=== PATIENT | female | born 1985 | race Caucasian/White ===

== ENCOUNTER → 2016-07-14 | Outpatient (REF) | payer OTHER | LOC: M SFHCCAPE 09:03 | PROVIDERS: ATTEND Physician Assistant | DX: J02.9 Acute pharyngitis, unspecified (principal) ==

== ENCOUNTER → 2016-08-15 | Outpatient (CLI) | payer OTHER ==
[2016-08-15 13:47] LABS: BLOOD UREA NITROGEN 14 MG/DL (7-18); CREATININE FOR GFR 0.68 MG/DL (0.55-1.02); GLOMERULAR FILTRATION RATE > 60.0 (>60)
== END ==
LOC: M LAB 12:34
PROVIDERS: ATTEND Internal Medicine Gastroenterology
DX: K51.00 Ulcerative (chronic) pancolitis without complications (principal)

== ENCOUNTER → 2017-04-04 | Outpatient (REF) | payer OTHER | LOC: M SFHCWAGY 10:07 | PROVIDERS: ATTEND Nurse Practitioner Family | DX: Z12.4 Encounter for screening for malignant neoplasm of cervix (principal) ==

== ENCOUNTER → 2018-01-31 | Outpatient (REF) | payer OTHER ==
[2018-01-31 11:59] LABS: ANION GAP 6 MEQ/L (8-16); BLOOD UREA NITROGEN 11 MG/DL (7-18); CALCIUM LEVEL 8.8 MG/DL (8.5-10.1); CARBON DIOXIDE LEVEL 28 MEQ/L (21-32); CHLORIDE LEVEL 109 MEQ/L (98-107); CHOLESTEROL LEVEL 183 MG/DL (<200); CHOLESTEROL RISK RATIO 5.228 (<5); CREATININE FOR GFR 0.61 MG/DL (0.55-1.30); GLOMERULAR FILTRATION RATE > 60.0 (>60); GLUCOSE, FASTING 103 MG/DL (70-100); HDL CHOLESTEROL 35 MG/DL (>40); NON-HDL-C 148 MG/DL; POTASSIUM SERUM 4.4 MEQ/L (3.5-5.1); SODIUM LEVEL 143 MEQ/L (136-145); TRIGLYCERIDES LEVEL 140 MG/DL (<150)
== END ==
LOC: M SFHCPLAZ 07:49
DX: Z13.220 Encounter for screening for lipoid disorders (principal); I10 Essential (primary) hypertension
CPT/HCPCS: 80061

== ENCOUNTER → 2018-05-10 | Outpatient (REF) | payer OTHER ==
[2018-05-10 12:47] LABS: ALBUMIN 3.7 GM/DL (3.2-5.2); ALBUMIN/GLOBULIN RATIO 1.23 (1.00-1.93); ALKALINE PHOSPHATASE 90 U/L (45-117); ALT/SGPT 19 U/L (12-78); ANION GAP 5 MEQ/L (8-16); AST/SGOT 12 U/L (7-37); BILIRUBIN,TOTAL 0.4 MG/DL (0.2-1.0); BLOOD UREA NITROGEN 11 MG/DL (7-18); CALCIUM LEVEL 8.9 MG/DL (8.5-10.1); CARBON DIOXIDE LEVEL 30 MEQ/L (21-32); CHLORIDE LEVEL 106 MEQ/L (98-107); CREATININE FOR GFR 0.63 MG/DL (0.55-1.30); GLOMERULAR FILTRATION RATE > 60.0 (>60); GLUCOSE, FASTING 95 MG/DL (70-100); POTASSIUM SERUM 4.3 MEQ/L (3.5-5.1); SODIUM LEVEL 141 MEQ/L (136-145); TOTAL PROTEIN 6.7 GM/DL (6.4-8.2)
== END ==
LOC: M SFHCPLAZ 08:15
DX: I10 Essential (primary) hypertension (principal); Z68.41 Body mass index [BMI] 40.0-44.9, adult; Z28.21 Immunization not carried out because of patient refusal
CPT/HCPCS: 80053

== ENCOUNTER → 2018-08-09 | Outpatient (REF) | payer OTHER ==
[2018-08-09 12:36] LABS: BLOOD UREA NITROGEN 11 MG/DL (7-18); CALCIUM LEVEL 8.9 MG/DL (8.5-10.1); CARBON DIOXIDE LEVEL 29 MEQ/L (21-32); CHLORIDE LEVEL 104 MEQ/L (98-107); CREATININE FOR GFR 0.64 MG/DL (0.55-1.30); GLOMERULAR FILTRATION RATE > 60.0 (>60); GLUCOSE, FASTING 94 MG/DL (70-100); POTASSIUM SERUM 4.4 MEQ/L (3.5-5.1); SODIUM LEVEL 141 MEQ/L (136-145)
== END ==
LOC: M SFHCPLAZ 08:32
PROVIDERS: ATTEND Nurse Practitioner Family
DX: I10 Essential (primary) hypertension (principal); E78.5 Hyperlipidemia, unspecified; G89.4 Chronic pain syndrome

== ENCOUNTER → 2018-08-23 | Outpatient (REF) | payer OTHER ==
[2018-08-23 17:11] LABS: BASO # 0.1 10^3/uL (0.0-0.2); BASO % 0.4 % (0.0-1.0); EOS # 0.2 10^3/uL (0.0-0.50); EOS % 1.7 % (0.0-3.0); HEMATOCRIT 37.7 % (36.0-47.0); LYMPH # 3.2 10^3/uL (1.5-4.5); LYMPH % 26.7 % (24.0-44.0); MEAN CORPUSCULAR HEMOGLOBIN 28.6 pg (27.0-33.0); MEAN CORPUSCULAR HGB CONC 31.8 g/dl (32.0-36.5); MEAN CORPUSCULAR VOLUME 89.8 fl (80.0-96.0); MONO # 0.6 10^3/uL (0.0-0.8); MONO % 5.1 % (0.0-5.0); NEUTROPHILS # 7.9 10^3/uL (1.8-7.7); NEUTROPHILS % 65.8 % (36.0-66.0); PLATELET COUNT, AUTOMATED 451 10^3/uL (150-450)
[2018-08-23 17:27] LABS: ALBUMIN 3.7 GM/DL (3.2-5.2); ALT/SGPT 19 U/L (12-78); BILIRUBIN,TOTAL 0.3 MG/DL (0.2-1.0); BLOOD UREA NITROGEN 10 MG/DL (7-18); C REACTIVE PROTEIN QUANTITATIV 1.06 MG/DL (0.00-0.30); CALCIUM LEVEL 8.7 MG/DL (8.5-10.1); CARBON DIOXIDE LEVEL 24 MEQ/L (21-32); CHLORIDE LEVEL 109 MEQ/L (98-107); CREATININE FOR GFR 0.64 MG/DL (0.55-1.30); GLOMERULAR FILTRATION RATE > 60.0 (>60); GLUCOSE, FASTING 106 MG/DL (70-100); POTASSIUM SERUM 4.5 MEQ/L (3.5-5.1); SODIUM LEVEL 142 MEQ/L (136-145); TOTAL PROTEIN 6.8 GM/DL (6.4-8.2)
== END ==
LOC: M LABDRWCV 16:38
PROVIDERS: ATTEND Internal Medicine Gastroenterology
DX: K51.50 Left sided colitis without complications (principal)

== ENCOUNTER → 2019-03-28 | Outpatient (REF) | payer OTHER ==
[2019-03-28 10:58] LABS: ALBUMIN 3.6 GM/DL (3.2-5.2); ALT/SGPT 31 U/L (12-78); BILIRUBIN,TOTAL 0.4 MG/DL (0.2-1.0); BLOOD UREA NITROGEN 12 MG/DL (7-18); CALCIUM LEVEL 8.7 MG/DL (8.5-10.1); CARBON DIOXIDE LEVEL 32 MEQ/L (21-32); CHLORIDE LEVEL 104 MEQ/L (98-107); CHOLESTEROL LEVEL 210 MG/DL (<200); CHOLESTEROL RISK RATIO 4.772 (<5); CREATININE FOR GFR 0.63 MG/DL (0.55-1.30); GLOMERULAR FILTRATION RATE > 60.0 (>60); GLUCOSE, FASTING 96 MG/DL (70-100); HDL CHOLESTEROL 44 MG/DL (>40); LDL CHOLESTEROL 145 MG/DL (<100); NON-HDL-C 166 MG/DL; POTASSIUM SERUM 4.6 MEQ/L (3.5-5.1); SODIUM LEVEL 141 MEQ/L (136-145); TOTAL PROTEIN 6.9 GM/DL (6.4-8.2); TRIGLYCERIDES LEVEL 107 MG/DL (<150)
[2019-03-28 11:38] LABS: CREATININE, URINE 58.5 MG/DL; MALB URINE SIEMENS < 5.0 MG/L; MAU/CREAT RATIO 8.5 MCG/MG (0.0-30.0)
== END ==
LOC: M SFHCPLAZ 08:44
PROVIDERS: ATTEND Family Medicine
DX: I10 Essential (primary) hypertension (principal); E78.5 Hyperlipidemia, unspecified

== ENCOUNTER 2019-07-30 07:53 | Day surgery (SDC) | payer OTHER ==
[~2019-07-30] VITALS: Ht 154.9 cm; Wt 93.9 kg
[~2019-07-30 07:53] MED LIST: DEPO150I IM; DICY20TA11 PO; DULO1CAP6 PO; GABA-843 PO; LIDOCAINE 1% MDV 20ML VIAL SQ PRN; LISI10TA4 PO; LORA-674 PO; LR 1,000 ML IV ONE; MESA400C2 PO; METH750T2 PO; OMEP-221 PO; TRAZ-252 PO; ceFAZolin SOD 1 GM in D5W MINI-BAG PLUS 50 ML IV ONE
[2019-07-30] MEDS ORDERED: MIDAZOLAM INJ 2 MG/2 ML VIAL (J2250) As Ordered ONE ×2 (08:23→10:18)
[2019-07-30] MEDS ORDERED: dexameTHASONE 4 MG/ML 1ML VIAL (J1100) As Ordered ONE (08:23)
[2019-07-30] MEDS ORDERED: fentaNYL 250 MCG/5 ML INJECTION (J3010) As Ordered ONE (08:23)
[2019-07-30] MEDS ORDERED: LACRILUBE (AKWA TEARS) OPHTH OINT 3.5 GM As Ordered ONE (08:24)
[2019-07-30] MEDS ORDERED: LIDOCAINE 2% INJ 100 MG/5 ML SDV (FOR ANES.) As Ordered ONE (08:24)
[2019-07-30] MEDS ORDERED: propofoL 200 MG/20 ML VIAL As Ordered ONE ×2 (08:24→09:58)
[2019-07-30] MEDS ORDERED: ROCURONIUM BROMIDE 50 MG/5 ML VIAL As Ordered ONE ×3 (08:24→10:19)
[2019-07-30] MEDS ORDERED: ONDANSETRON 4MG/2ML VIAL (J2405) As Ordered ONE ×2 (08:24→11:55)
[2019-07-30] MEDS ORDERED: KETOROLAC 60 MG/2 ML VIAL (J1885) As Ordered ONE (08:24)
[2019-07-30] MEDS ORDERED: BUPIVACAINE LIPOSOME/PF 1.3% 20ML VIAL (13.3MG/ML)(EXPAREL)(C9290 PER1MG) As Ordered ONE (09:16)
[2019-07-30] MEDS ORDERED: BUPIVACAINE/EPIN 0.25% 30 ML VIAL As Ordered ONE (09:16)
[2019-07-30] MEDS ORDERED: BUPIVACAINE HCL 0.25% 10 ML VIAL As Ordered ONE (09:16)
[2019-07-30] MEDS ORDERED: HYDROmorphone HCL 2 MG/ML 1ML VIAL (J1170) As Ordered ONE (09:57)
[2019-07-30] MEDS ORDERED: ACETAMINOPHEN 1000MG 100ML IV BTL (OFIRMEV) (J0131 PER 10MG) As Ordered ONE (10:01)
[2019-07-30] MEDS ORDERED: SUGAMMADEX SODIUM 500 MG/5 ML VIAL (BRIDION) As Ordered ONE (10:07)
[2019-07-30] MEDS ORDERED: METOPROLOL 5 MG/5 ML VIAL As Ordered ONE (11:19)
--- NOTE | 2019-07-30 11:28 | RO ---
DATE OF PROCEDURE: 07/30/2019 PREOPERATIVE DIAGNOSIS: Umbilical hernia and incisional hernia. POSTOPERATIVE DIAGNOSIS: Umbilical hernia and incisional hernia. PROCEDURE: Robotic-assisted laparoscopic umbilical and incisional hernia repair with mesh. SURGEON: Dr. Ran Rosas. WIRE WEAVER: Janine Melara (provided instrument exchange, trocar placement and the mesh placement) ANESTHESIA: General endotracheal anesthesia. ESTIMATED BLOOD LOSS: Minimal. FLUIDS: Crystalloid. DESCRIPTION OF PROCEDURE: The patient was brought to the operating room and was given general anesthesia. After adequate anesthesia and preoperative antibiotics were given the patient was prepped and draped in the usual sterile fashion. Next a left upper quadrant 8 mm incision was made. Blunt dissection down to fascia. Veress needle placed into the abdominal cavity and insufflated to 15 mm pressure. Then a dilating 8 mm trocar was placed at this time. Under direct visualization an epigastric and left lateral trocars were placed. The patient had omentum incarcerated within this hernia. This incisional hernia was below the umbilicus and was containing omentum but no bowel. This was taken out of this hernia site using electrocautery and eventually once the hernia contents were reduced the insufflation pressures were taken down and 0 Stratafix was used to approximate the 5 cm fascial defect at the infraumbilical area. This came together longitudinally and then starting superior to the umbilicus, the fascia was brought together to close the umbilical site as well. Once these two were closed a 10 x 15, Parietex mesh was placed in the peritoneal cavity and sutured circumferentially with three #3-0 V-Loc suture. Exparel and local was infiltrated circumferentially and laterally in the abdominal wall. All trocars were removed under direct visualization. #4-0 Vicryl was used close the skin incisions. Steri-Strips and a dry sterile dressing was applied. The patient was awakened, extubated, brought to recovery room awake, alert, hemodynamically stable. Sponge and needle counts correct times two
[2019-07-30] MEDS ORDERED: oxyCODONE 5MG TAB As Ordered ONE (11:56)
[2019-07-30] MEDS: ONDANSETRON 4MG/2ML VIAL (J2405) IV PRN (12:04)
[2019-07-30] MEDS ORDERED: oxyCODONE 5MG TAB PO PRN (12:15)
[2019-07-30] MEDS ORDERED: NORCO, ANEXSIA 5/325MG TABLET (HYDROcodone/ACETAMINOPHEN) PO PRN (12:15)
[2019-07-30] MEDS ORDERED: HYDROMORPHONE HCL 0.5 MG/ 0.5 ML SYRINGE (J1170 PER 1) IV PRN (12:15)
[2019-07-30] MEDS ORDERED: ONDANSETRON 4MG/2ML VIAL (J2405) IV PRN (12:15)
[2019-07-30] MEDS ORDERED: fentaNYL 100 MCG/2 ML INJECTION (J3010) IV PRN (12:15)
[2019-07-30] MEDS ORDERED: LR 1,000 ML IV SCH ×2 (12:15)
[2019-07-30 14:35] VITALS: BP 135/86
== END 2019-07-30 14:35 | disposition home or self-care (01) ==
LOC: M SDC 07:53
PROVIDERS: ATTEND Surgery
DX: K42.9 Umbilical hernia without obstruction or gangrene (principal); K43.2 Incisional hernia without obstruction or gangrene; I10 Essential (primary) hypertension; K21.9 Gastro-esophageal reflux disease without esophagitis; M79.7 Fibromyalgia; F41.9 Anxiety disorder, unspecified; F32.9 Major depressive disorder, single episode, unspecified; Z79.899 Other long term (current) drug therapy; Z88.1 Allergy status to other antibiotic agents; Z91.040 Latex allergy status
CPT/HCPCS: 49652; 81025; C1781; C9290; J0131; J0690; J1100; J1170; J1885; J2250; J2405; J3010

== ENCOUNTER → 2019-10-11 | Outpatient (REF) | payer OTHER ==
[~2019-10-11] MED LIST changes: -LIDOCAINE 1% MDV 20ML VIAL SQ PRN; -LR 1,000 ML IV ONE; -ceFAZolin SOD 1 GM in D5W MINI-BAG PLUS 50 ML IV ONE
[2019-10-11 10:33] LABS: BLOOD UREA NITROGEN 13 MG/DL (7-18); CALCIUM LEVEL 9.2 MG/DL (8.5-10.1); CARBON DIOXIDE LEVEL 32 MEQ/L (21-32); CHLORIDE LEVEL 104 MEQ/L (98-107); CREATININE FOR GFR 0.57 MG/DL (0.55-1.30); GLOMERULAR FILTRATION RATE > 60.0 (>60); GLUCOSE, FASTING 97 MG/DL (70-100); POTASSIUM SERUM 4.7 MEQ/L (3.5-5.1); SODIUM LEVEL 139 MEQ/L (136-145)
== END ==
LOC: M PLALAB 08:11
PROVIDERS: ATTEND Nurse Practitioner Family
DX: I10 Essential (primary) hypertension (principal)

== ENCOUNTER → 2020-05-26 | Outpatient (REF) | payer OTHER | LOC: M SFHCPLAZ 13:13 | PROVIDERS: ATTEND Family Medicine | DX: D22.9 Melanocytic nevi, unspecified (principal) ==

== ENCOUNTER 2020-06-11 21:59 | Inpatient (IN) | payer OTHER ==
[~2020-06-11] VITALS: Ht 154.9 cm; Wt 88.9 kg
[2020-06-11 23:55] VITALS: BP 119/70
[2020-06-12] MEDS ORDERED: LISI-542 PO (00:17)
[2020-06-12] MEDS ORDERED: MULTTAB86 PO (00:28)
[2020-06-12] MEDS ORDERED: ACETAMINOPHEN TAB 650MG DOSE (2X325MG) PO PRN (00:30)
[2020-06-12] MEDS ORDERED: MOM 30ML SUSPENSION UDC PO PRN (00:30)
[2020-06-12] MEDS ORDERED: MAALOX 30 ML SUSP *UDC PO PRN (00:30)
--- NOTE | 2020-06-12 00:35 | HPEPDOC ---
[facility] Medical History & Physical Date of Admission Jun 12, 2020 Date of Service: Jun 12, 2020 History and Physical TIME OF SERVICE: 1:30 AM CHIEF COMPLAINT: Pain and swelling HISTORY OF PRESENT ILLNESS: This 35-year-old female presented to [facility] with complaints of with redness, pain, swelling, and yellow-green discharge draining from the upper pubic area. She initially had pimples in the area which she had tried to manage on her own with manual pressure, but more pimples continue to appear in the increased in size. She was evaluated by Dr. Schofield at [facility] who noted that her WBC count was 26. Imaging studies also revealed an abscess that was 4.5 cm in size within opened area that was draining pus, therefore transfer was requested for incision and drainage. At the time of my evaluation, the patient also added that the day prior after trying to manually remove the discharge, she felt fairly overwhelmed and had a syncopal episode. She denied having fevers, chills, nausea, vomiting or diarrhea. REVIEW OF SYSTEMS: 12 point review of systems negative except as listed in HPI PAST MEDICAL/ SURGICAL HISTORY: Hypertension Fibromyalgia Irritable bowel syndrome Ulcerative colitis ? Hernia repair Depression Anxiety Vitamin D deficiency Hiatial hernia repair SOCIAL HISTORY: She is a former smoker She uses medical marijuana FAMILY HISTORY: Hypertension ALLERGIES: Please see below. HOME MEDICATIONS: Please see below. PHYSICAL EXAMINATION: VITAL SIGNS: Please see below. GEN: well-nourished / well developed/ anxious INTEGUMENT: Skin at the mid and left suprapubic area is red, warm, raised and tender on palpation. There is some serosanguineous discharge . HEENT: lips acyanotic /mucus membranes moist and pink / CVS: RRR/NMRG/ no JVP / radial pulses intact LUNGS: able to speak full sentences without stopping to take a breath / no coughing / lungs are clear to auscultation bilaterally on room air ABDOMEN: Contour (obese) MSK/EXTREMITIES: NCAT / range of motion intact in all 4 extremities NEURO: CN 2-12 are grossly intact / speech is not dysarthric PSYCH: alert and oriented to person place and time/ able to understand and follow all commands LABORATORY DATA: See below. IMAGING: see HPI MICROBIOLOGY: Please see below. ASSESSMENT: Ms. Martino is a 35-year-old with a history of obesity, hypertension, fibromyalgia, ulcers, colitis, along with irritable bowel syndrome who presented to an outside hospital with complaints of suprapubic redness, pain and swelling along with discharge and was diagnosed with pubic symphysis abscess . PLAN: 1. Pubic symphysis abscess. Plan: Admit to medical floor/start vancomycin for MRSA coverage and ceftriaxone for MSSA coverage / morphine for pain/ nothing by mouth pending possible incision and drainage by Dr. Carlson 2. Chronic hypertension Plan: Lisinopril 3. Irritable bowel syndrome. / UC? The patient follows up with Dr. Street Plan: Dicyclomine 4. Depression Plan: Duloxetine 5. Morbid obesity BMI 37.2, complicates care. Plan: Follow-up A1c / the patient can follow-up with her primary care provider to discuss dietary and exercise recommendations DVT PROPHYLAXIS: SCDs DISPOSITION: home after more than 2 midnight's stay Vital Signs Vital Signs Date Time Temp Pulse Resp B/P (MAP) Pulse Ox O2 Delivery O2 Flow Rate FiO2 06/11/20 23:55 99.1 107 20 119/70 (86) 97 Room Air Home Medications Scheduled Duloxetine Hcl (Duloxetine HCl) 60 Mg Capsule.dr, 60 MG PO DAILY Gabapentin (Gabapentin) 300 Mg Capsule, 300 MG PO TID Lisinopril (Lisinopril) 5 Mg Tablet, 5 MG PO DAILY Loratadine (Loratadine) 10 Mg Tablet, 10 MG PO DAILY Medroxyprogesterone Acetate (Depo-Provera) 150 Mg/1 Ml Vial, 150 MG IM [id number] due this [id number] Methocarbamol (Methocarbamol) 750 Mg Tablet, 750 MG PO TID Multivitamin (Multi-Vitamin Daily) 1 Each Tablet, 1 TAB PO DAILY Omeprazole (Omeprazole) 40 Mg Capsule.dr, 40 MG PO BID Scheduled PRN Dicyclomine HCl (Dicyclomine HCl) 20 Mg Tablet, 20 MG PO Q6-8HP PRN for DIARRHEA Allergies Coded Allergies: doxycycline (Unverified Allergy, Intermediate, hives, 07/22/19) latex (Unverified Allergy, Intermediate, hives, 07/22/19) A-FIB/CHADSVASC A-FIB History Current/History of A-Fib/PAF?: No Current PO Anticoag Therapy: No ALISE HARDIN MD Jun 12, 2020 00:35
[2020-06-12 01:47] LABS: HEMATOCRIT 33.3 % (36.0-47.0); HEMOGLOBIN 10.4 g/dl (12.0-15.5); MEAN CORPUSCULAR HEMOGLOBIN 28.3 pg (27.0-33.0); MEAN CORPUSCULAR HGB CONC 31.2 g/dl (32.0-36.5); MEAN CORPUSCULAR VOLUME 90.7 fl (80.0-96.0); PLATELET COUNT, AUTOMATED 317 10^3/uL (150-450); RED BLOOD COUNT 3.67 10^6/uL (4.00-5.40)
[2020-06-12] MEDS: MORPHINE 4 MG/ML 1ML VIAL/SYRINGE (J2270) IV PRN ×3 (01:58→08:17)
[2020-06-12] MEDS: NS 1,000 ML IV SCH ×2 (01:58→08:15)
[2020-06-12 02:05] LABS: HEMOGLOBIN A1c 5.8 %
[2020-06-12 02:13] LABS: BLOOD UREA NITROGEN 10 MG/DL (7-18); CALCIUM LEVEL 8.7 MG/DL (8.5-10.1); CARBON DIOXIDE LEVEL 26 MEQ/L (21-32); CHLORIDE LEVEL 109 MEQ/L (98-107); CREATININE FOR GFR 0.72 MG/DL (0.55-1.30); GLOMERULAR FILTRATION RATE > 60.0 (>60); GLUCOSE, FASTING 103 MG/DL (70-100); POTASSIUM SERUM 3.5 MEQ/L (3.5-5.1); SODIUM LEVEL 140 MEQ/L (136-145)
[2020-06-12] MEDS ORDERED: DICYCLOMINE 10 MG CAP PO PRN (03:00)
[2020-06-12] MEDS: VANCOMYCIN HCL 1,000 MG, VIAL MATE ADAPTER 1 EACH in D5W 250 ML IV SCH ×3 (04:08→21:36)
[2020-06-12 05:46] VITALS: BP 114/69
[2020-06-12] MEDS: GABAPENTIN 300 MG CAP PO SCH ×3 (08:16→21:36)
[2020-06-12] MEDS: methocarbamoL 750 MG TAB PO SCH ×3 (08:16→21:36)
[2020-06-12] MEDS: LORATADINE 10 MG TAB PO SCH (08:16)
[2020-06-12] MEDS: DULoxetine 30 MG CAP (CYMBALTA) PO SCH (08:16)
[2020-06-12] MEDS: OMEPRAZOLE 20 MG CAP PO SCH (08:16)
[2020-06-12] MEDS: lisinopriL 5 MG TAB PO SCH (08:16)
[2020-06-12] MEDS ORDERED: LIDOCAINE 1% MDV 20ML VIAL IM ONE (08:45)
[2020-06-12] MEDS: NORCO, ANEXSIA 5/325MG TABLET (HYDROcodone/ACETAMINOPHEN) PO PRN ×3 (08:55→21:36)
--- NOTE | 2020-06-12 13:20 | RO ---
OPERATIVE NOTE DATE OF OPERATION: 06/11/2020 PREOPERATIVE DIAGNOSIS: Right groin abscess. POSTOPERATIVE DIAGNOSIS: Right groin abscess. PROCEDURE: Bedside incision and drainage of right groin abscess. SURGEON: Dr. Carlson ASSIST: None. ANESTHESIA: 5 mL of 1% Lidocaine plain. COMPLICATIONS: None. EBL: 5 mL. INDICATION FOR PROCEDURE: The patient is a 35-year-old female with a large right groin abscess with significant leukocytosis secondary to that. Recommendation was to proceed with bedside incision and drainage. Risks and benefits of the procedure not limited to but including bleeding, infection, damage to surrounding structures, and need for further surgery were discussed in detail with the patient, informed consent was obtained and procedure was planned. PROCEDURE: The patient's right groin was sterilely prepped and draped with chlorhexidine. Next, a timeout was done with the bedside nurse. Next, 5 mL of 1% Lidocaine plain was injected into the skin and the subcutaneous tissues overlying the most fluctuant portion of the abscess where there is already active drainage. Once that was completed, a 15 blade scalpel was used to make a 1 cm incision right into the middle of it. Upon doing so, a large amount of purulent fluid was expelled. I was able to drain out as much as I could manually. The wound was gently probed with a cotton tipped applicator. Once the majority of the drainage was out, the wound was covered with just dry gauze and that ended the procedure.
--- NOTE | 2020-06-12 13:50 | IPNPDOC ---
Date Seen The patient was seen on 06/12/20. Progress Note SUBJECTIVE: Patient is a -year-old [RACE] [GENDER] with OBJECTIVE HISTORY OF PRESENT ILLNESS: This 35-year-old female presented to [facility] with complaints of with redness, pain, swelling, and yellow-green discharge draining from the upper pubic area. She initially had pimples in the area which she had tried to manage on her own with manual pressure, but more pimples continue to appear in the increased in size. She was evaluated by Dr. Schofield at [facility] who noted that her WBC count was 26. Imaging studies also revealed an abscess that was 4.5 cm in size within opened area that was draining pus, therefore transfer was requested for incision and drainage. At the time of my evaluation, the patient also added that the day prior after trying to manually remove the discharge, she felt fairly overwhelmed and had a syncopal episode. She denied having fevers, chills, nausea, vomiting or diarrhea. REVIEW OF SYSTEMS: 12 point review of systems negative except as listed in HPI PAST MEDICAL/ SURGICAL HISTORY: Hypertension Fibromyalgia Irritable bowel syndrome Ulcerative colitis ? Hernia repair Depression Anxiety Vitamin D deficiency Hiatial hernia repair SOCIAL HISTORY: She is a former smoker She uses medical marijuana FAMILY HISTORY: Hypertension ALLERGIES: Please see below. HOME MEDICATIONS: Please see below. PHYSICAL EXAMINATION: VITAL SIGNS: Please see below. GEN: well-nourished / well developed/ anxious INTEGUMENT: Skin at the mid and left suprapubic area is red, warm, raised and tender on palpation. There is some serosanguineous discharge . HEENT: lips acyanotic /mucus membranes moist and pink / CVS: RRR/NMRG/ no JVP / radial pulses intact LUNGS: able to speak full sentences without stopping to take a breath / no coughing / lungs are clear to auscultation bilaterally on room air ABDOMEN: Contour (obese) MSK/EXTREMITIES: NCAT / range of motion intact in all 4 extremities NEURO: CN 2-12 are grossly intact / speech is not dysarthric PSYCH: alert and oriented to person place and time/ able to understand and follow all commands LABORATORY DATA: See below. IMAGING: see HPI MICROBIOLOGY: Please see below. ASSESSMENT: Ms. Martino is a 35-year-old with a history of obesity, hypertension, fibromyalgia, ulcers, colitis, along with irritable bowel syndrome who presented to an outside hospital with complaints of suprapubic redness, pain and swelling along with discharge and was diagnosed with pubic symphysis abscess . PLAN: 1. Pubic symphysis abscess -S/p I&D bedside -Stopping Ceftriaxone, c/w vancomycin for MRSA coverage. -pain control -F/u cultures -Surgery following 2. Chronic hypertension -Stable -C/w Lisinopril 3. Irritable bowel syndrome. / UC? -follows up with Dr. Street -Dicyclomine 4. Depression -Duloxetine 5. Morbid obesity -BMI 37.2, complicates care. -the patient can follow-up with her primary care provider to discuss dietary and exercise recommendations 6. DVT PROPHYLAXIS -Enoxaparin DISPOSITION: F/u cultures, Plan is discharge home when medically improved. VS, I&O, 24H, Fishbone Vital Signs/I&O Vital Signs Date Time Temp Pulse Resp B/P (MAP) Pulse Ox O2 Delivery O2 Flow Rate FiO2 06/12/20 09:25 16 06/12/20 08:16 114/69 06/12/20 05:46 97.6 103 97 Room Air I&O- Last 24 Hours up to 6 AM 06/12/20 06:00 Intake Total 692 ml Output Total 0 ml Balance 692 ml Laboratory Data 24H LABS Laboratory Tests 2 06/12/20 01:34: Nucleated Red Blood Cells % (auto) 0.0, Anion Gap 5L, Glomerular Filtration Rate > 60.0, Estimated Mean Plasma Glucose 120H, Hemoglobin A1c 5.8, Lactic Acid Level 1.5, Calcium Level 8.7 CBC/BMP Laboratory Tests 06/12/20 01:34 Microbiology Microbiology 06/12/20 Blood Culture, Received Pending Current Medications Current Medications Medications (Trade) Dose Ordered Sig/Tess Route PRN Reason Start Time Stop Time Status Last Admin Dose Admin Acetaminophen (Tylenol Tab) 650 mg Q4H PRN PO MILD/MODERATE PAIN / FEVER 06/12/20 00:30 Acetaminophen/ Hydrocodone Bitart ([place], Anexsia 5/325) 2 tab Q6HP PRN PO SEVERE PAIN (PS 8-10) 06/12/20 08:45 06/12/20 08:55 Al Hydrox/Mg Hydrox/Simethicone (Mylanta) 30 ml DAILY PRN PO DYSPEPSIA 06/12/20 00:30 Ceftriaxone Sodium 2 gm/ Dextrose 50 ml @ 100 mls/hr Q24H IV 06/12/20 18:00 06/12/20 11:52 DC Dicyclomine HCl (Bentyl) 20 mg Q8HP PRN PO diarrhea 06/12/20 03:00 Duloxetine HCl (Cymbalta) 60 mg DAILY PO 06/12/20 09:00 06/12/20 08:16 Gabapentin (Neurontin) 300 mg TID PO 06/12/20 09:00 06/12/20 08:16 Home Med (Med Rec Complete!) ASDIRECTED XX 06/12/20 00:45 06/12/20 00:52 DC Lisinopril (Prinivil) 5 mg DAILY PO 06/12/20 09:00 06/12/20 08:16 Loratadine (Claritin) 10 mg DAILY PO 06/12/20 09:00 06/12/20 08:16 Magnesium Hydroxide (Milk Of Magnesia) 30 ml DAILY PRN PO CONSTIPATION 06/12/20 00:30 Methocarbamol (Robaxin) 750 mg TID PO 06/12/20 09:00 06/12/20 08:16 Morphine Sulfate (Morphine Sulfate Inj) 2 mg Q3HP PRN IV SEVERE PAIN (PS 8-10) 06/12/20 01:45 06/12/20 08:17 Omeprazole (PriLOSEC) 40 mg DAILY PO 06/12/20 09:00 06/12/20 08:16 Sodium Chloride 1,000 ml @ 120 mls/hr Q8H20M IV 06/12/20 00:29 06/12/20 11:52 DC 06/12/20 08:15 Vancomycin HCl 1000 mg/IV Miscellaneous Supplies 1 each/ Dextrose 270 ml @ 270 mls/hr Q8H IV 06/12/20 04:00 06/12/20 12:14 Allergies Coded Allergies: doxycycline (Unverified Allergy, Intermediate, hives, 07/22/19) latex (Unverified Allergy, Intermediate, hives, 07/22/19) Jessica Castellon MD Jun 12, 2020 13:50
[2020-06-12] MEDS: ENOXAPARIN 40MG/0.4ML SYRINGE (J1650 PER 10MG) SC SCH (14:00)
[2020-06-12] MEDS ORDERED: cefTRIAXone SOD 2 GM in D5W MINI-BAG PLUS 50 ML IV SCH (18:00)
[2020-06-12] MEDS ORDERED: VANCOMYCIN HCL 1,000 MG, VIAL MATE ADAPTER 1 EACH in D5W 250 ML IV ONE (21:00)
[2020-06-12 22:00] VITALS: BP 103/55
[2020-06-13] MEDS: VANCOMYCIN HCL 1,000 MG, VIAL MATE ADAPTER 1 EACH in D5W 250 ML IV SCH ×3 (03:45→20:11)
[2020-06-13] MEDS: NORCO, ANEXSIA 5/325MG TABLET (HYDROcodone/ACETAMINOPHEN) PO PRN ×2 (03:46→12:33)
[2020-06-13 06:00] VITALS: BP 114/63
[2020-06-13 07:39] LABS: HEMATOCRIT 31.8 % (36.0-47.0); HEMOGLOBIN 10.1 g/dl (12.0-15.5); MEAN CORPUSCULAR HEMOGLOBIN 28.4 pg (27.0-33.0); MEAN CORPUSCULAR HGB CONC 31.8 g/dl (32.0-36.5); MEAN CORPUSCULAR VOLUME 89.3 fl (80.0-96.0); PLATELET COUNT, AUTOMATED 351 10^3/uL (150-450); RED BLOOD COUNT 3.56 10^6/uL (4.00-5.40)
[2020-06-13 08:02] LABS: BLOOD UREA NITROGEN 5 MG/DL (7-18); CREATININE FOR GFR 0.57 MG/DL (0.55-1.30); GLOMERULAR FILTRATION RATE > 60.0 (>60); GLUCOSE, FASTING 97 MG/DL (70-100)
[2020-06-13 08:03] LABS: CALCIUM LEVEL 8.5 MG/DL (8.5-10.1); CARBON DIOXIDE LEVEL 29 MEQ/L (21-32); CHLORIDE LEVEL 107 MEQ/L (98-107); POTASSIUM SERUM 3.7 MEQ/L (3.5-5.1); SODIUM LEVEL 142 MEQ/L (136-145)
[2020-06-13] MEDS: LORATADINE 10 MG TAB PO SCH (08:40)
[2020-06-13] MEDS: lisinopriL 5 MG TAB PO SCH (08:41)
[2020-06-13] MEDS: OMEPRAZOLE 20 MG CAP PO SCH (08:41)
[2020-06-13] MEDS: GABAPENTIN 300 MG CAP PO SCH ×3 (08:41→20:11)
[2020-06-13] MEDS: methocarbamoL 750 MG TAB PO SCH ×3 (08:41→20:11)
[2020-06-13] MEDS: DULoxetine 30 MG CAP (CYMBALTA) PO SCH (08:41)
[2020-06-13] MEDS: ENOXAPARIN 40MG/0.4ML SYRINGE (J1650 PER 10MG) SC SCH (08:42)
[2020-06-13 14:00] VITALS: BP 130/81
--- NOTE | 2020-06-13 14:29 | IPNPDOC ---
Date Seen The patient was seen on 06/13/20. Progress Note SUBJECTIVE: Area of cellulitis appears extensive still, not worsened. No cultures send from I&D that I can see, will discuss with staff. BCx NG. Denies fevers, chills, n/v/d. OBJECTIVE: PHYSICAL EXAMINATION: VITAL SIGNS: Please see below. GEN: well-nourished / well developed INTEGUMENT: Skin at the right suprapubic extending around the right hip, upper thigh area is red, warm, raised and tender on palpation. Indurated and tender to touch. 2 small incisions where I&D was performed, fresh bandage covering. No serosanguineous discharge . HEENT: lips acyanotic /mucus membranes moist and pink / CVS: RRR/NMRG/ no JVP / radial pulses intact LUNGS: able to speak full sentences without stopping to take a breath / no coughing / lungs are clear to auscultation bilaterally on room air ABDOMEN: obese, Contour (obese) MSK/EXTREMITIES: NCAT / range of motion intact in all 4 extremities NEURO: CN 2-12 are grossly intact / speech is not dysarthric PSYCH: alert and oriented to person place and time/ able to understand and follow all commands LABORATORY DATA: See below. IMAGING: see HPI MICROBIOLOGY: BCx x 2 sets: NG at 24 hours. ASSESSMENT: Ms. Martino is a 35-year-old with a history of obesity, hypertension, fibromyalgia, ulcers, colitis, along with irritable bowel syndrome admitted for further treatment of pubic symphysis abscess with right groin, hip and upper thigh cellulitis. PLAN: 1. Pubic symphysis abscess with right groin, hip and upper thigh cellulitis -S/p I&D by surgery at bedside on 06/12/20 -WBC slightly improved to 23K, afebrile, LA wnl. -No cultures appear to be sent from I&D unfortunately, BCx NG at 24 hours. -Stopped Ceftriaxone 06/12/20 -C/w vancomycin for MRSA coverage. -Pain control, daily labs. 2. Chronic hypertension -Stable -C/w Lisinopril 3. Irritable bowel syndrome / UC? -follows up with Dr. Street -Dicyclomine 4. Depression -Duloxetine 5. Morbid obesity -BMI 37.2, complicates care. -the patient can follow-up with her primary care provider to discuss dietary and exercise recommendations 6. DVT PROPHYLAXIS -Enoxaparin DISPOSITION: Plan is discharge home when medically improved. VS, I&O, 24H, Fishbone Vital Signs/I&O Vital Signs Date Time Temp Pulse Resp B/P (MAP) Pulse Ox O2 Delivery O2 Flow Rate FiO2 06/13/20 14:00 98.0 94 18 130/81 (97) 97 Room Air I&O- Last 24 Hours up to 6 AM 06/13/20 06:00 Intake Total 2830 ml Output Total 0 ml Balance 2830 ml Laboratory Data 24H LABS Laboratory Tests 2 06/12/20 18:46: Vancomycin Level Trough 7.9L 06/13/20 07:21: Nucleated Red Blood Cells % (auto) 0.0, Anion Gap 6L, Glomerular Filtration Rate > 60.0, Calcium Level 8.5 CBC/BMP Laboratory Tests 06/13/20 07:21 Microbiology Microbiology 06/12/20 Blood Culture - Preliminary, Resulted No growth after 24 hours . All specim... 06/12/20 Blood Culture - Preliminary, Resulted No growth after 24 hours . All specim... Current Medications Current Medications Medications (Trade) Dose Ordered Sig/Tess Route PRN Reason Start Time Stop Time Status Last Admin Dose Admin Acetaminophen (Tylenol Tab) 650 mg Q4H PRN PO MILD/MODERATE PAIN / FEVER 06/12/20 00:30 Acetaminophen/ Hydrocodone Bitart ([place], Anexsia 5/325) 2 tab Q6HP PRN PO SEVERE PAIN (PS 8-10) 06/12/20 08:45 06/13/20 12:33 Al Hydrox/Mg Hydrox/Simethicone (Mylanta) 30 ml DAILY PRN PO DYSPEPSIA 06/12/20 00:30 Ceftriaxone Sodium 2 gm/ Dextrose 50 ml @ 100 mls/hr Q24H IV 06/12/20 18:00 06/12/20 11:52 DC Dicyclomine HCl (Bentyl) 20 mg Q8HP PRN PO diarrhea 06/12/20 03:00 Duloxetine HCl (Cymbalta) 60 mg DAILY PO 06/12/20 09:00 06/13/20 08:41 Enoxaparin Sodium (Lovenox) 40 mg DAILY SC 06/12/20 09:00 Gabapentin (Neurontin) 300 mg TID PO 06/12/20 09:00 06/13/20 08:41 Home Med (Med Rec Complete!) ASDIRECTED XX 06/12/20 00:45 06/12/20 00:52 DC Lisinopril (Prinivil) 5 mg DAILY PO 06/12/20 09:00 06/13/20 08:41 Loratadine (Claritin) 10 mg DAILY PO 06/12/20 09:00 06/13/20 08:40 Magnesium Hydroxide (Milk Of Magnesia) 30 ml DAILY PRN PO CONSTIPATION 06/12/20 00:30 Methocarbamol (Robaxin) 750 mg TID PO 06/12/20 09:00 06/13/20 08:41 Morphine Sulfate (Morphine Sulfate Inj) 2 mg Q3HP PRN IV SEVERE PAIN (PS 8-10) 06/12/20 01:45 06/12/20 08:17 Omeprazole (PriLOSEC) 40 mg DAILY PO 06/12/20 09:00 06/13/20 08:41 Sodium Chloride 1,000 ml @ 120 mls/hr Q8H20M IV 06/12/20 00:29 06/12/20 11:52 DC 06/12/20 08:15 Vancomycin HCl 1000 mg/IV Miscellaneous Supplies 1 each/ Dextrose 270 ml @ 270 mls/hr Q8H IV 06/12/20 04:00 06/13/20 12:34 Allergies Coded Allergies: doxycycline (Unverified Allergy, Intermediate, hives, 07/22/19) latex (Unverified Allergy, Intermediate, hives, 07/22/19) Jessica Castellon MD Jun 13, 2020 14:29
[2020-06-13] MEDS: KETOROLAC 30 MG/ML 1ML VIAL IV SCH (18:20)
[2020-06-13 22:00] VITALS: BP 158/78
[2020-06-14] MEDS: KETOROLAC 30 MG/ML 1ML VIAL IV SCH ×3 (02:36→17:18)
[2020-06-14] MEDS: VANCOMYCIN HCL 1,000 MG, VIAL MATE ADAPTER 1 EACH in D5W 250 ML IV SCH ×3 (04:44→20:19)
[2020-06-14 06:00] VITALS: BP 132/80
[2020-06-14] MEDS: ENOXAPARIN 40MG/0.4ML SYRINGE (J1650 PER 10MG) SC SCH (08:16)
[2020-06-14] MEDS: OMEPRAZOLE 20 MG CAP PO SCH (08:19)
[2020-06-14] MEDS: DULoxetine 30 MG CAP (CYMBALTA) PO SCH (08:20)
[2020-06-14] MEDS: methocarbamoL 750 MG TAB PO SCH ×3 (08:20→20:19)
[2020-06-14] MEDS: GABAPENTIN 300 MG CAP PO SCH ×3 (08:20→20:19)
[2020-06-14] MEDS: LORATADINE 10 MG TAB PO SCH (08:20)
[2020-06-14] MEDS: lisinopriL 10 MG TAB PO SCH (08:20)
[2020-06-14 11:14] LABS: HEMATOCRIT 32.4 % (36.0-47.0); HEMOGLOBIN 10.2 g/dl (12.0-15.5); MEAN CORPUSCULAR HGB CONC 31.5 g/dl (32.0-36.5); PLATELET COUNT, AUTOMATED 411 10^3/uL (150-450); RED BLOOD COUNT 3.64 10^6/uL (4.00-5.40); WHITE BLOOD COUNT 14.7 10^3/uL (4.0-10.0)
[2020-06-14 11:29] LABS: ALBUMIN 2.6 GM/DL (3.2-5.2); ALT/SGPT 99 U/L (12-78); BILIRUBIN,TOTAL 0.7 MG/DL (0.2-1.0); BLOOD UREA NITROGEN 9 MG/DL (7-18); CALCIUM LEVEL 8.9 MG/DL (8.5-10.1); CARBON DIOXIDE LEVEL 29 MEQ/L (21-32); CHLORIDE LEVEL 105 MEQ/L (98-107); CREATININE FOR GFR 0.63 MG/DL (0.55-1.30); GLOMERULAR FILTRATION RATE > 60.0 (>60); GLUCOSE, FASTING 107 MG/DL (70-100); POTASSIUM SERUM 3.8 MEQ/L (3.5-5.1); SODIUM LEVEL 141 MEQ/L (136-145)
[2020-06-14 14:00] VITALS: BP 118/81
[2020-06-14] MEDS ORDERED: traMADol 50 MG TAB PO PRN (15:30)
--- NOTE | 2020-06-14 15:30 | IPNPDOC ---
Date Seen The patient was seen on 06/14/20. Progress Note SUBJECTIVE: Area of cellulitis improving, WBC 14K. WCx pending, BCX NG. Pain better controlled with toradol PRN. Denies fevers, chills, n/v/d. OBJECTIVE: PHYSICAL EXAMINATION: VITAL SIGNS: Please see below. GEN: well-nourished / well developed INTEGUMENT: Skin at the right suprapubic extending around the right hip, upper thigh area is red, warm, raised and tender on palpation but MUCH improved, receeding back from outlined area. decreased induration. 2 small incisions where I&D was performed, fresh bandage covering at times still suppurative. HEENT: lips acyanotic /mucus membranes moist and pink / CVS: RRR/NMRG/ no JVP / radial pulses intact LUNGS: able to speak full sentences without stopping to take a breath / no coughing / lungs are clear to auscultation bilaterally on room air ABDOMEN: obese, Contour (obese) MSK/EXTREMITIES: NCAT / range of motion intact in all 4 extremities NEURO: CN 2-12 are grossly intact / speech is not dysarthric PSYCH: alert and oriented to person place and time/ able to understand and follow all commands LABORATORY DATA: See below. IMAGING: see HPI MICROBIOLOGY: Wound Cx: pending BCx x 2 sets: NG at 24 hours. ASSESSMENT: Ms. Martino is a 35-year-old with a history of obesity, hypertension, fibromyalgia, ulcers, colitis, along with irritable bowel syndrome admitted for further treatment of pubic symphysis abscess with right groin, hip and upper thigh cellulitis. PLAN: 1. Pubic symphysis abscess with right groin, hip and upper thigh cellulitis- slowly improving -S/p I&D by surgery at bedside on 06/12/20 -WBC 14K, afebrile, LA wnl. -Wound cx obtained 06/13/20- pending , BCx NG at 24 hours. -C/w vancomycin for MRSA coverage. -Pain control with toradol, tramadol, oxy/acetaminophen PO meds, daily labs. 2. Chronic hypertension -Stable -C/w Lisinopril 3. Irritable bowel syndrome / UC? -follows up with Dr. Street -Dicyclomine 4. Depression -Duloxetine 5. Morbid obesity -BMI 37.2, complicates care. -the patient can follow-up with her primary care provider to discuss dietary and exercise recommendations 6. DVT PROPHYLAXIS -Enoxaparin DISPOSITION: Plan is discharge home when medically improved. VS, I&O, 24H, Jcbone Vital Signs/I&O Vital Signs Date Time Temp Pulse Resp B/P (MAP) Pulse Ox O2 Delivery O2 Flow Rate FiO2 06/14/20 14:00 98.6 77 18 118/81 (93) 97 Room Air I&O- Last 24 Hours up to 6 AM 06/14/20 06:00 Intake Total 1300 ml Balance 1300 ml Laboratory Data 24H LABS Laboratory Tests 2 06/14/20 08:23: Nucleated Red Blood Cells % (auto) 0.0 06/14/20 10:52: Anion Gap 7L, Glomerular Filtration Rate > 60.0, Calcium Level 8.9, Total Bilirubin 0.7, Aspartate Amino Transf (AST/SGOT) 96H, Alanine Aminotransferase (ALT/SGPT) 99H, Alkaline Phosphatase 182H, Total Protein 7.0, Albumin 2.6L, Albumin/Globulin Ratio 0.6L, Vancomycin Level Trough 14.0 CBC/BMP Laboratory Tests 06/14/20 08:23 06/14/20 10:52 Microbiology Microbiology 06/13/20 Wound Culture, Received Pending 06/12/20 Blood Culture - Preliminary, Resulted No Growth after 48 hours. All Specime... 06/12/20 Blood Culture - Preliminary, Resulted No Growth after 48 hours. All Specime... Current Medications Current Medications Medications (Trade) Dose Ordered Sig/Tess Route PRN Reason Start Time Stop Time Status Last Admin Dose Admin Acetaminophen (Tylenol Tab) 650 mg Q4H PRN PO MILD/MODERATE PAIN / FEVER 06/12/20 00:30 Acetaminophen/ Hydrocodone Bitart ([place], Anexsia 5/325) 2 tab Q6HP PRN PO SEVERE PAIN (PS 8-10) 06/12/20 08:45 06/13/20 12:33 Al Hydrox/Mg Hydrox/Simethicone (Mylanta) 30 ml DAILY PRN PO DYSPEPSIA 06/12/20 00:30 Ceftriaxone Sodium 2 gm/ Dextrose 50 ml @ 100 mls/hr Q24H IV 06/12/20 18:00 06/12/20 11:52 DC Dicyclomine HCl (Bentyl) 20 mg Q8HP PRN PO diarrhea 06/12/20 03:00 Duloxetine HCl (Cymbalta) 60 mg DAILY PO 06/12/20 09:00 06/14/20 08:20 Enoxaparin Sodium (Lovenox) 40 mg DAILY SC 06/12/20 09:00 Gabapentin (Neurontin) 300 mg TID PO 06/12/20 09:00 06/14/20 08:20 Home Med (Med Rec Complete!) ASDIRECTED XX 06/12/20 00:45 06/12/20 00:52 DC Ketorolac Tromethamine (ToRADol) 15 mg Q8H IV 06/13/20 18:00 06/18/20 17:59 06/14/20 11:04 Lisinopril (Prinivil) 5 mg DAILY PO 06/12/20 09:00 06/14/20 08:02 DC 06/13/20 08:41 Lisinopril (Prinivil) 10 mg DAILY PO 06/14/20 09:00 06/14/20 08:20 Loratadine (Claritin) 10 mg DAILY PO 06/12/20 09:00 06/14/20 08:20 Magnesium Hydroxide (Milk Of Magnesia) 30 ml DAILY PRN PO CONSTIPATION 06/12/20 00:30 Methocarbamol (Robaxin) 750 mg TID PO 06/12/20 09:00 06/14/20 08:20 Morphine Sulfate (Morphine Sulfate Inj) 2 mg Q3HP PRN IV SEVERE PAIN (PS 8-10) 06/12/20 01:45 06/12/20 08:17 Omeprazole (PriLOSEC) 40 mg DAILY PO 06/12/20 09:00 06/14/20 08:19 Sodium Chloride 1,000 ml @ 120 mls/hr Q8H20M IV 06/12/20 00:29 06/12/20 11:52 DC 06/12/20 08:15 Vancomycin HCl 1000 mg/IV Miscellaneous Supplies 1 each/ Dextrose 270 ml @ 270 mls/hr Q8H IV 06/12/20 04:00 06/14/20 12:27 Allergies Coded Allergies: doxycycline (Unverified Allergy, Intermediate, hives, 07/22/19) latex (Unverified Allergy, Intermediate, hives, 07/22/19) Jessica Castellon MD Jun 14, 2020 15:30
[2020-06-14] MEDS: PERCOCET 5MG/325MG TAB PO PRN (20:20)
[2020-06-14 22:00] VITALS: BP 134/74
[2020-06-15] MEDS: KETOROLAC 30 MG/ML 1ML VIAL IV SCH ×2 (02:58→10:00)
[2020-06-15] MEDS: VANCOMYCIN HCL 1,000 MG, VIAL MATE ADAPTER 1 EACH in D5W 250 ML IV SCH (03:58)
[2020-06-15 06:00] VITALS: BP 139/84
[2020-06-15] MEDS: PERCOCET 5MG/325MG TAB PO PRN (06:11)
[2020-06-15 06:59] LABS: HEMATOCRIT 31.7 % (36.0-47.0); HEMOGLOBIN 9.8 g/dl (12.0-15.5); MEAN CORPUSCULAR HEMOGLOBIN 27.8 pg (27.0-33.0); MEAN CORPUSCULAR HGB CONC 30.9 g/dl (32.0-36.5); MEAN CORPUSCULAR VOLUME 90.1 fl (80.0-96.0); PLATELET COUNT, AUTOMATED 421 10^3/uL (150-450); RED BLOOD COUNT 3.52 10^6/uL (4.00-5.40); WHITE BLOOD COUNT 10.7 10^3/uL (4.0-10.0)
[2020-06-15 07:30] LABS: ALBUMIN 2.6 GM/DL (3.2-5.2); ALT/SGPT 127 U/L (12-78); BILIRUBIN,TOTAL 0.7 MG/DL (0.2-1.0); BLOOD UREA NITROGEN 8 MG/DL (7-18); CALCIUM LEVEL 8.6 MG/DL (8.5-10.1); CARBON DIOXIDE LEVEL 30 MEQ/L (21-32); CHLORIDE LEVEL 106 MEQ/L (98-107); CREATININE FOR GFR 0.56 MG/DL (0.55-1.30); GLOMERULAR FILTRATION RATE > 60.0 (>60); GLUCOSE, FASTING 102 MG/DL (70-100); POTASSIUM SERUM 3.9 MEQ/L (3.5-5.1); SODIUM LEVEL 141 MEQ/L (136-145)
[2020-06-15] MEDS ORDERED: PROB250C PO (07:48)
[2020-06-15] MEDS ORDERED: ACET1TAB55 PO (07:48)
[2020-06-15] MEDS ORDERED: CLIN150C14 PO (07:48)
[2020-06-15] MEDS: GABAPENTIN 300 MG CAP PO SCH (08:52)
[2020-06-15] MEDS: LORATADINE 10 MG TAB PO SCH (08:52)
[2020-06-15 08:53] VITALS: BP 134/82
[2020-06-15] MEDS: DULoxetine 30 MG CAP (CYMBALTA) PO SCH (08:53)
[2020-06-15] MEDS: methocarbamoL 750 MG TAB PO SCH (08:53)
[2020-06-15] MEDS: OMEPRAZOLE 20 MG CAP PO SCH (08:53)
[2020-06-15] MEDS: lisinopriL 10 MG TAB PO SCH (08:53)
[2020-06-15] MEDS: ENOXAPARIN 40MG/0.4ML SYRINGE (J1650 PER 10MG) SC SCH (08:54)
--- NOTE | 2020-06-15 12:57 | DS.PDOC ---
Discharge Summary General Date of Admission Jun 11, 2020 at 23:50 Date of Discharge 06/15/20 Attending Physician: Jessica Castellon MD Discharge Summary HISTORY OF PRESENT ILLNESS: This 35-year-old female presented to [facility] with complaints of with redness, pain, swelling, and yellow-green discharge draining from the upper pubic area. She initially had pimples in the area which she had tried to manage on her own with manual pressure, but more pimples continue to appear in the increased in size. She was evaluated by Dr. Schofield at [facility] who noted that her WBC count was 26. Imaging studies also revealed an abscess that was 4.5 cm in size within opened area that was draining pus, therefore transfer was requested for incision and drainage. At the time of my evaluation, the patient also added that the day prior after trying to manually remove the discharge, she felt fairly overwhelmed and had a near syncopal episode. She denied having fevers, chills, nausea, vomiting or diarrhea. Patient was admitted for further treatment of groin abscess requiring I&D, IV abx HOSPITAL COURSE: patient was kept on IV vancomycin, ceftriaxone was d/olegario. Surgery performed I&D and abscess continued to drain. Wound culture grew Staph aureus. WBC and erythema/tenderness/pain continued to improve. On 06/15/20, patient was discharged home with PO Clindamycin + probiotic, tylenol to continue. She is advised to f/u with PCP within 1-2 weeks after discharge. She is also advised to f/u with PCP about mildly elevated AST/ALT and advised to avoid alcohol until she has followed up with them. At discharge, she had no incr pain, fevers, chills, n/v/d. PAST MEDICAL/ SURGICAL HISTORY: Hypertension Fibromyalgia Irritable bowel syndrome Ulcerative colitis ? Hernia repair Depression Anxiety Vitamin D deficiency Hiatial hernia repair SOCIAL HISTORY: She is a former smoker She uses medical marijuana FAMILY HISTORY: Hypertension PHYSICAL EXAMINATION: VITAL SIGNS: Please see below. GEN: well-nourished / well developed INTEGUMENT: Skin at the right suprapubic extending around the right hip, upper thigh area has decreased erythema, tenderness on palpation, further receeded back from outlined area. decreased induration. 2 small incisions where I&D was performed appear well healing, at times still minimally suppurative HEENT: lips acyanotic /mucus membranes moist and pink / CVS: RRR/NMRG/ no JVP / radial pulses intact LUNGS: CTAB, no w/r/r ABDOMEN: obese, Contour (obese) MSK/EXTREMITIES: NCAT / range of motion intact in all 4 extremities NEURO: CN 2-12 are grossly intact / speech is not dysarthric PSYCH: alert and oriented to person place and time/ able to understand and follow all commands LABORATORY DATA: See below. IMAGING: see HPI MICROBIOLOGY: Wound Cx: staph aureus BCx x 2 sets: NG at 24 hours. ASSESSMENT: Ms. Martino is a 35-year-old with a history of obesity, hypertension, fibromyalgia, ulcers, colitis, along with irritable bowel syndrome admitted for further treatment of pubic symphysis abscess with right groin, hip and upper thigh cellulitis. PLAN: 1. Pubic symphysis abscess with right groin, hip and upper thigh cellulitis- slowly improving -S/p I&D by surgery at bedside on 06/12/20 -WBC 11K, afebrile, LA wnl. -Wound cx: Staph aureus -BCx NG -Treated with vancomycin, but discharged with PO clindamycin + probiotics x 7 days -Pain control with tylenol. F/u with PCP 2. Chronic hypertension -Stable -C/w Lisinopril 3. Irritable bowel syndrome / UC? -follows up with Dr. Street -Lillyyclcorryine 4. Depression -Duloxetine 5. Morbid obesity -BMI 37.2, complicates care. -the patient can follow-up with her primary care provider to discuss dietary and exercise recommendations DISPOSITION: D/c home today advised to f/u with PCP, advised to bring discharge instructions with her on next appt. TOTAL TIME SPENT ON DISCHARGE: Greater than 30 mins Vital Signs/I&Os Vital Signs Date Time Temp Pulse Resp B/P (MAP) Pulse Ox O2 Delivery O2 Flow Rate FiO2 06/15/20 08:53 134/82 06/15/20 06:41 16 06/15/20 06:00 97.8 63 100 Room Air I&O- Last 24 Hours up to 6 AM 06/15/20 06:00 Intake Total 1980 ml Balance 1980 ml Laboratory Data Labs 24H Laboratory Tests 2 06/15/20 06:19: Nucleated Red Blood Cells % (auto) 0.0, Anion Gap 5L, Glomerular Filtration Rate > 60.0, Calcium Level 8.6, Total Bilirubin 0.7, Aspartate Amino Transf (AST/SGOT) 153H, Alanine Aminotransferase (ALT/SGPT) 127H, Alkaline Phosphatase 233H, Total Protein 6.0L, Albumin 2.6L, Albumin/Globulin Ratio 0.8L CBC/BMP Laboratory Tests 06/15/20 06:19 Microbiology Microbiology 06/13/20 Wound Culture - Final, Complete Staphylococcus Aureus 06/12/20 Blood Culture - Preliminary, Resulted No Growth after 48 hours. All Specime... 06/12/20 Blood Culture - Preliminary, Resulted No Growth after 72 hours. All specime... Discharge Medications Scheduled Clindamycin Hcl (Clindamycin HCl) 150 Mg Capsule, 150 MG PO QID Duloxetine Hcl (Duloxetine HCl) 60 Mg Capsule.dr, 60 MG PO DAILY, (Reported) Gabapentin (Gabapentin) 300 Mg Capsule, 300 MG PO TID, (Reported) Lisinopril (Lisinopril) 5 Mg Tablet, 5 MG PO DAILY, (Reported) Loratadine (Loratadine) 10 Mg Tablet, 10 MG PO DAILY, (Reported) Medroxyprogesterone Acetate (Depo-Provera) 150 Mg/1 Ml Vial, 150 MG IM [id number], (Reported) due this dece2019 Methocarbamol (Methocarbamol) 750 Mg Tablet, 750 MG PO TID, (Reported) Multivitamin (Multi-Vitamin Daily) 1 Each Tablet, 1 TAB PO DAILY, (Reported) Omeprazole (Omeprazole) 40 Mg Capsule.dr, 40 MG PO BID, (Reported) Saccharomyces Boulardii (Probiotic) 250 Mg Capsule, 1 CAP PO BIDWM Scheduled PRN Acetaminophen (Acetaminophen) 325 Mg Tablet, 650 MG PO Q6H PRN for MILD/MODERATE PAIN / FEVER Dicyclomine HCl (Dicyclomine HCl) 20 Mg Tablet, 20 MG PO Q6-8HP PRN for DIARRHEA, (Reported) Allergies Coded Allergies: doxycycline (Unverified Allergy, Intermediate, hives, 07/22/19) latex (Unverified Allergy, Intermediate, hives, 07/22/19) Jessica Castellon MD Jun 15, 2020 12:57
--- NOTE | 2020-06-17 12:00 | CR ---
CONSULTATION DATE: 06/15/2020 REASON FOR CONSULT: Abscess. HISTORY OF PRESENT ILLNESS: Patient is a 35-year-old female who has had a right groin abscess that started off as a pimple about 4 days ago. It slowly increased in size. Yesterday she presented to [facility] due to severe pain and an open area that was draining purulent fluid. She had an elevated white count of about 26,[address] as well as a CT scan there showing a fluid collection. Because of the leukocytosis she was transferred down here and admitted to the medicine service. Overnight she says it has been continuing to drain profusely; however, the pain is significant and she cannot touch it and is having difficulty even bending the right leg. Overall she does feel minimal improvement since it opened up and started to drain on its own. No fevers or chills, no prior infections, no previous abscesses, no known history of MRSA. PAST MEDICAL HISTORY: 1. Hypertension. 2. Fibromyalgia. 3. IBS. 4. Ulcerative colitis. 5. Depression/anxiety. 6. Vitamin D deficiency. PAST SURGICAL HISTORY: Hiatal hernia repair. ALLERGIES: 1. DOXYCYCLINE. 2. LATEX. HOME MEDICATIONS: Please see Med Rec. SOCIAL HISTORY: Denies drug, alcohol or tobacco abuse. FAMILY HISTORY: Noncontributory. REVIEW OF SYSTEMS: Pertinent positives and negatives as stated in the HPI. PHYSICAL EXAMINATION: General: A&O times 3, in no acute distress. Vital signs: Temperature 97.6, pulse 103, respirations 18, blood pressure 114/69, pulse ox 97% on room air. HEENT: Pupils equal, round and reactive to light and accommodation. Heart: S1 and S2 regular rate and rhythm. Lungs: Clear to auscultation bilaterally. Abdomen: Soft, tender to palpation in the right groin. There is significant induration and erythema over the right side of the pubic symphysis extending over to the right hip and over toward the left groin as well. In the middle just to the right is about a 2 mm opening with some minimal drainage on top of it and severe tenderness to palpation throughout the entire area. LABORATORY DATA: White count 25 of as of 1:30 this morning, hemoglobin 10.4, hematocrit 33.3, platelets 317. Potassium 3.5, lactic acid 1.5, hemoglobin A1c 5.8. ASSESSMENT AND RECOMMENDATIONS: Patient is a 35-year-old female with a right groin abscess and leukocytosis. Secondary to this the recommendation is to a bedside incision and drainage. Risks and benefits of procedure not limited to, but including bleeding, infection, damage to surrounding structures, need for further surgery were discussed in detail with the patient. Informed consent was obtained and procedure was completed at the bedside. Please see separate Procedure Note for that. Once the procedure was completed she was placed back on a regular diet, is to continue with antibiotics. Once her leukocytosis improves she can be placed on oral meds and discharged home.
== END 2020-06-15 11:40 | disposition home or self-care (01) | DRG 383 ==
LOC: M MS5PR 23:50
PROVIDERS: ADMIT Internal Medicine; ATTEND Internal Medicine
PROC: 0H9HXZZ Drainage of Right Upper Leg Skin, External Approach (ICD-10-PCS; principal; 2020-06-11)
DX: L02.214 Cutaneous abscess of groin (principal); K58.9 Irritable bowel syndrome, unspecified; I10 Essential (primary) hypertension; M79.7 Fibromyalgia; F41.9 Anxiety disorder, unspecified; E55.9 Vitamin D deficiency, unspecified; F32.9 Major depressive disorder, single episode, unspecified; E66.9 Obesity, unspecified; L03.115 Cellulitis of right lower limb; Z79.899 Other long term (current) drug therapy; Z91.040 Latex allergy status; Z88.8 Allergy status to other drugs, medicaments and biological substances

== ENCOUNTER → 2020-06-29 | Outpatient (REF) | payer OTHER ==
[~2020-06-29] MED LIST changes: +ACET1TAB55 PO; +CLIN150C14 PO; +LISI-542 PO; +MULTTAB86 PO; +PROB250C PO
[2020-06-29 13:50] LABS: BASO # 0.1 10^3/uL (0.0-0.2); BASO % 0.7 % (0.0-1.0); EOS # 0.1 10^3/uL (0.0-0.5); HEMATOCRIT 38.2 % (36.0-47.0); LYMPH # 3.4 10^3/uL (1.5-5.0); LYMPH % 30.5 % (24.0-44.0); MEAN CORPUSCULAR HEMOGLOBIN 28.9 pg (27.0-33.0); MEAN CORPUSCULAR HGB CONC 31.4 g/dl (32.0-36.5); MONO # 0.6 10^3/uL (0.0-0.8); MONO % 5.1 % (0.0-5.0); NEUTROPHILS % 62.4 % (36.0-66.0); PLATELET COUNT, AUTOMATED 560 10^3/uL (150-450); RED BLOOD COUNT 4.15 10^6/uL (4.00-5.40); WHITE BLOOD COUNT 11.2 10^3/uL (4.0-10.0)
[2020-06-29 16:31] LABS: ALT/SGPT 26 U/L (12-78); BILIRUBIN,TOTAL 0.4 MG/DL (0.2-1.0); BLOOD UREA NITROGEN 11 MG/DL (7-18); CARBON DIOXIDE LEVEL 30 MEQ/L (21-32); CHLORIDE LEVEL 106 MEQ/L (98-107); CREATININE FOR GFR 0.64 MG/DL (0.55-1.30); GLOMERULAR FILTRATION RATE > 60.0 (>60); GLUCOSE, FASTING 100 MG/DL (70-100); POTASSIUM SERUM 3.8 MEQ/L (3.5-5.1); SODIUM LEVEL 140 MEQ/L (136-145); TOTAL PROTEIN 7.1 GM/DL (6.4-8.2)
== END ==
LOC: M SFHCPLAZ 11:56
PROVIDERS: ATTEND Family Medicine
DX: D64.9 Anemia, unspecified (principal); R74.8 Abnormal levels of other serum enzymes

== ENCOUNTER → 2020-09-22 | Outpatient (REF) | payer OTHER ==
[~2020-09-22] MED LIST changes: -CLIN150C14 PO; +CLIN150C15 PO; +GABA-282 PO; -GABA-843 PO; -LISI-542 PO; +LISI-898 PO; +LISI10TA22 PO; -LISI10TA4 PO; +METH-1165 PO; -METH750T2 PO
== END ==
LOC: M LAB REF 14:51
PROVIDERS: ATTEND Internal Medicine Gastroenterology
DX: K51.00 Ulcerative (chronic) pancolitis without complications (principal)

== ENCOUNTER → 2021-02-16 | Outpatient (REF) | payer OTHER ==
[~2021-02-16] MED LIST changes: -CLIN150C15 PO; +CLIN150C17 PO
== END ==
LOC: M SFHCWAGY 12:39
PROVIDERS: ATTEND Nurse Practitioner Women's Health
DX: Z12.4 Encounter for screening for malignant neoplasm of cervix (principal); R87.610 Atypical squamous cells of undetermined significance on cytologic smear of cervix (ASC-US)

== ENCOUNTER → 2021-03-10 | Outpatient (CLI) | payer OTHER ==
[~2021-03-10] MED LIST changes: +LARI1TAB7 PO; +MESA800T8 PO
== END ==
LOC: M LABSMTC 10:31
PROVIDERS: ATTEND Anesthesiology
DX: Z01.812 Encounter for preprocedural laboratory examination (principal); Z20.822 Contact with and (suspected) exposure to COVID-19

== ENCOUNTER 2021-03-15 10:28 | Day surgery (SDC) | payer OTHER ==
[~2021-03-15] VITALS: Ht 154.9 cm; Wt 86.5 kg
[~2021-03-15 10:28] MED LIST changes: +NS 1,000 ML IV ONE
[2021-03-15] MEDS ORDERED: propofoL 200 MG/20 ML VIAL As Ordered ONE ×2 (10:32→14:02)
[2021-03-15] MEDS ORDERED: LIDOCAINE 2% 100MG/5ML SDV (FOR ANES.) As Ordered ONE (10:32)
[2021-03-15] MEDS ORDERED: fentaNYL 100 MCG/2 ML INJECTION (J3010) As Ordered ONE (13:52)
--- NOTE | 2021-03-15 14:21 | ROOR ---
Patient Name: Chasity Cullen Procedure Date: 03/15/2021 1:39 PM Date of : 1985 Age: 36 Room: [id number] Gender: Female Note Status: Finalized Procedure: Colonoscopy Indications: Follow-up of chronic ulcerative pancolitis, Disease activity assessment of chronic ulcerative pancolitis Providers: Yuan Street MD Referring MD: Taylor Rider MD Requesting Provider: Medicines: Monitored Anesthesia Care Complications: No immediate complications. Procedure: Pre-Anesthesia Assessment: - The heart rate, respiratory rate, oxygen saturations, blood pressure, adequacy of pulmonary ventilation, and response to care were monitored throughout the procedure. The Colonoscope was introduced through the anus and advanced to 15 cm into the ileum. The colonoscopy was performed without difficulty. The patient tolerated the procedure well. The quality of the bowel preparation was good. Findings: The perianal and digital rectal examinations were normal. A localized area of granular mucosa was found at the ileocecal valve. Biopsies were taken with a cold forceps for histology. A single localized erosion was found in the distal rectum. Biopsies were taken with a cold forceps for histology. The remainder of the exam in the terminal ileum was normal. The colon exam was otherwise normal throughout the examined colon. Biopsies were taken with a cold forceps in the rectum, in the sigmoid colon, in the descending colon, in the transverse colon and in the ascending colon for histology. Impression: - Granularity at the ileocecal valve. (likely prolapsing ileal mucosal fold). Biopsied. - The terminal ileum is otherwise normal for 15 cm. Biopsied. - A single small shallow erosion in the distal anorectum. Biopsied. - The rest of the colon is normal. Random segmental biopsies done. Recommendation: - Continue present medications. - Await pathology results. - Telephone endoscopist for pathology results in 2 weeks. Procedure Code(s): --- Professional --- 46701, Colonoscopy, flexible; with biopsy, single or multiple Diagnosis Code(s): --- Professional --- K51.00, Ulcerative (chronic) pancolitis without complications K62.6, Ulcer of anus and rectum K63.89, Other specified diseases of intestine CPT copyright 2019 [employer]. All rights reserved. The codes documented in this report are preliminary and upon hand counter review may be revised to meet current compliance requirements. Yuan Street MD Yuan Street MD 03/15/2021 2:21:42 PM Electronically signed by Yuan Street MD Number of Addenda: 0 Note Initiated On: 03/15/2021 1:39 PM Estimated Blood Loss: Estimated blood loss: none. Estimated blood loss: none.
[2021-03-15 14:39] VITALS: BP 116/68
== END 2021-03-15 14:41 | disposition home or self-care (01) ==
LOC: M OPP 10:28
PROVIDERS: ATTEND Internal Medicine Gastroenterology
DX: K62.6 Ulcer of anus and rectum (principal); K63.89 Other specified diseases of intestine; R12 Heartburn; M79.7 Fibromyalgia; Z79.899 Other long term (current) drug therapy; Z88.1 Allergy status to other antibiotic agents; Z91.040 Latex allergy status
CPT/HCPCS: 45380; 88305; J3010

== ENCOUNTER → 2021-05-10 | Outpatient (REF) | payer OTHER ==
[~2021-05-10] MED LIST changes: -NS 1,000 ML IV ONE
== END ==
LOC: M SFHCWAGY 13:32
PROVIDERS: ATTEND Nurse Practitioner Women's Health
DX: R87.610 Atypical squamous cells of undetermined significance on cytologic smear of cervix (ASC-US) (principal); R87.810 Cervical high risk human papillomavirus (HPV) DNA test positive

== ENCOUNTER → 2021-11-19 | Outpatient (CLI) | payer OTHER ==
[~2021-11-19] MED LIST changes: -DICY20TA11 PO; +DICY20TA20 PO; -LISI-898 PO; +LISI5TAB11 PO; -OMEP-221 PO; +OMEP40CA5 PO
[2021-11-19 16:27] LABS: BASO # 0.1 10^3/uL (0.0-0.2); BASO % 0.5 % (0.0-1.0); EOS # 0.1 10^3/uL (0.0-0.5); HEMATOCRIT 37.9 % (36.0-47.0); HEMOGLOBIN 12.2 g/dl (12.0-15.5); LYMPH # 3.8 10^3/uL (1.5-5.0); LYMPH % 28.5 % (24.0-44.0); MEAN CORPUSCULAR HEMOGLOBIN 29.7 pg (27.0-33.0); MEAN CORPUSCULAR HGB CONC 32.2 g/dl (32.0-36.5); MEAN CORPUSCULAR VOLUME 92.2 fl (80.0-96.0); MONO # 0.8 10^3/uL (0.0-0.8); MONO % 5.9 % (2.0-8.0); NEUTROPHILS # 8.5 10^3/uL (1.5-8.5); NEUTROPHILS % 63.8 % (36.0-66.0); PLATELET COUNT, AUTOMATED 417 10^3/uL (150-450); RED BLOOD COUNT 4.11 10^6/uL (4.00-5.40); WHITE BLOOD COUNT 13.3 10^3/uL (4.0-10.0)
[2021-11-19 16:51] LABS: BLOOD UREA NITROGEN 12 MG/DL (7-18); CALCIUM LEVEL 8.9 MG/DL (8.5-10.1); CARBON DIOXIDE LEVEL 30 MEQ/L (21-32); CHLORIDE LEVEL 105 MEQ/L (98-107); CHOLESTEROL LEVEL 231 MG/DL (<200); CHOLESTEROL RISK RATIO 4.914 (<5); CREATININE FOR GFR 0.71 MG/DL (0.55-1.30); FERRITIN 10 NG/ML (8-252); GLOMERULAR FILTRATION RATE > 60.0 (>60); GLUCOSE, FASTING 89 MG/DL (70-100); HDL CHOLESTEROL 47 MG/DL (>40); LDL CHOLESTEROL 144 MG/DL (<100); NON-HDL-C 184 MG/DL; POTASSIUM SERUM 4.4 MEQ/L (3.5-5.1); SODIUM LEVEL 138 MEQ/L (136-145); TRIGLYCERIDES LEVEL 199 MG/DL (<150)
[2021-11-19 17:02] LABS: HEMOGLOBIN A1c 5.5 %
== END ==
LOC: M PLALAB 13:52
PROVIDERS: ATTEND Family Medicine
DX: I10 Essential (primary) hypertension (principal); Z13.1 Encounter for screening for diabetes mellitus; Z13.220 Encounter for screening for lipoid disorders; K51.90 Ulcerative colitis, unspecified, without complications; G25.81 Restless legs syndrome; M25.512 Pain in left shoulder; M25.562 Pain in left knee

== ENCOUNTER → 2022-02-15 | Outpatient (CLI) | payer OTHER ==
[~2022-02-15] MED LIST changes: +GABA-283 PO; +SERO50TA PO
== END ==
LOC: M LABSMTC 10:10
PROVIDERS: ATTEND Anesthesiology
DX: Z01.818 Encounter for other preprocedural examination (principal); Z11.52 Encounter for screening for COVID-19

== ENCOUNTER 2022-02-18 11:04 | Day surgery (SDC) | payer OTHER ==
[~2022-02-18] VITALS: Ht 154.9 cm; Wt 96.2 kg
[~2022-02-18 11:04] MED LIST changes: +ceFAZolin SOD 2 GM in IV 1 EA IV ONE
[2022-02-18] MEDS ORDERED: LR 1,000 ML IV SCH (11:55)
[2022-02-18] MEDS ORDERED: propofoL 200 MG/20 ML VIAL As Ordered ONE (12:22)
[2022-02-18] MEDS ORDERED: fentaNYL 100 MCG/2 ML INJECTION As Ordered ONE (12:22)
[2022-02-18] MEDS ORDERED: MIDAZOLAM INJ 2MG/2ML VIAL (J2250 PER 1MG) As Ordered ONE (12:22)
[2022-02-18] MEDS ORDERED: LIDOCAINE 2% 100MG/5ML SDV (FOR ANES.) As Ordered ONE (12:23)
[2022-02-18] MEDS ORDERED: ONDANSETRON 4MG 2ML VIAL As Ordered ONE (12:23)
[2022-02-18] MEDS ORDERED: LIDOCAINE 1% SDV 30ML VIAL As Ordered ONE (12:50)
[2022-02-18] MEDS ORDERED: propofoL 500 MG/50 ML VIAL As Ordered ONE (13:16)
[2022-02-18] MEDS ORDERED: KETAMINE HCL 200 MG/20 ML VIAL As Ordered ONE (13:21)
[2022-02-18] MEDS ORDERED: BACITRACIN OINTMENT 30GM TUBE As Ordered ONE (13:37)
[2022-02-18 14:32] VITALS: BP 153/88
== END 2022-02-18 14:46 | disposition home or self-care (01) ==
LOC: M SDC 11:04
PROVIDERS: ATTEND Internal Medicine Cardiovascular Disease
DX: R55 Syncope and collapse (principal); R00.2 Palpitations; E78.2 Mixed hyperlipidemia; I10 Essential (primary) hypertension; K21.9 Gastro-esophageal reflux disease without esophagitis; G25.81 Restless legs syndrome; F41.9 Anxiety disorder, unspecified; F32.A Depression, unspecified; K58.8 Other irritable bowel syndrome; K44.9 Diaphragmatic hernia without obstruction or gangrene; E55.9 Vitamin D deficiency, unspecified; M79.7 Fibromyalgia; Z87.891 Personal history of nicotine dependence; F12.10 Cannabis abuse, uncomplicated; Z88.1 Allergy status to other antibiotic agents; Z91.040 Latex allergy status; Z79.899 Other long term (current) drug therapy
CPT/HCPCS: 33285; 81025; C1764; J0690; J2250; J2405; J3010

== ENCOUNTER → 2022-04-05 | Outpatient (CLI) | payer OTHER ==
[~2022-04-05] MED LIST changes: -ceFAZolin SOD 2 GM in IV 1 EA IV ONE
== END ==
LOC: M PAIN 13:00
PROVIDERS: ATTEND Nurse Practitioner Family
DX: M54.40 Lumbago with sciatica, unspecified side (principal); G89.29 Other chronic pain; I10 Essential (primary) hypertension; K21.9 Gastro-esophageal reflux disease without esophagitis; M79.7 Fibromyalgia; Z86.14 Personal history of Methicillin resistant Staphylococcus aureus infection; Z86.59 Personal history of other mental and behavioral disorders; Z87.891 Personal history of nicotine dependence; Z88.1 Allergy status to other antibiotic agents; Z91.040 Latex allergy status; Z79.899 Other long term (current) drug therapy

== ENCOUNTER → 2022-04-25 | Outpatient (CLI) | payer OTHER | LOC: M RAD 14:17 | PROVIDERS: ATTEND Nurse Practitioner Family | DX: M54.40 Lumbago with sciatica, unspecified side (principal); M41.56 Other secondary scoliosis, lumbar region ==

== ENCOUNTER → 2022-05-06 | Outpatient (CLI) | payer OTHER | LOC: M PAIN 10:00 | PROVIDERS: ATTEND Nurse Practitioner Family | DX: M54.40 Lumbago with sciatica, unspecified side (principal); G89.29 Other chronic pain; I10 Essential (primary) hypertension; K21.9 Gastro-esophageal reflux disease without esophagitis; M79.7 Fibromyalgia; Z86.14 Personal history of Methicillin resistant Staphylococcus aureus infection; Z86.59 Personal history of other mental and behavioral disorders; Z87.891 Personal history of nicotine dependence; Z88.1 Allergy status to other antibiotic agents; Z91.040 Latex allergy status; E66.01 Morbid (severe) obesity due to excess calories; Z68.42 Body mass index [BMI] 45.0-49.9, adult; Z79.899 Other long term (current) drug therapy ==

== ENCOUNTER 2022-07-28 00:24 | Emergency (ER) | payer OTHER ==
[~2022-07-28] VITALS: Ht 154.9 cm; Wt 80.0 kg
[2022-07-28 00:36] VITALS: BP 174/101
[2022-07-28] MEDS ORDERED: NS 1,000 ML IV ONE (00:50)
[2022-07-28] MEDS ORDERED: ONDANSETRON 4MG 2ML VIAL IV ONE (00:50)
[2022-07-28] MEDS ORDERED: KETOROLAC 30 MG/ML 1ML VIAL IV ONE (00:50)
[2022-07-28] MEDS ORDERED: ISOVUE-370 76% 100ML VIAL As Ordered ONE (00:50)
[2022-07-28] MEDS ORDERED: HALOPERIDOL 5MG/ML 1ML VIAL IV ONE (02:20)
[2022-07-28] MEDS ORDERED: HALOPERIDOL 5MG/ML 1ML VIAL As Ordered ONE (02:24)
[2022-07-28 05:04] LABS: ALBUMIN 3.6 G/DL (3.2-5.2); ALKALINE PHOSPHATASE 73 U/L (46-116); ALT/SGPT 18 U/L (7.0-40); AST/SGOT 21 U/L (<34); BILIRUBIN,DIRECT < 0.1 MG/DL (<0.4); BILIRUBIN,TOTAL 0.4 MG/DL (0.3-1.2); LIPASE 33 U/L (12-53); TOTAL PROTEIN 7.5 G/DL (5.7-8.2)
[2022-07-28 05:31] LABS: HEMATOCRIT 41.3 % (36.0-47.0); HEMOGLOBIN 13.3 g/dl (12.0-15.5); MEAN CORPUSCULAR HGB CONC 32.2 g/dl (32.0-36.5); MEAN CORPUSCULAR VOLUME 90.2 fl (80.0-96.0); PLATELET COUNT, AUTOMATED 437 10^3/uL (150-450); RED BLOOD COUNT 4.58 10^6/uL (4.00-5.40); WHITE BLOOD COUNT 15.9 10^3/uL (4.0-10.0)
[2022-07-28 05:32] LABS: BASO # 0.1 10^3/uL (0.0-0.2); BASO % 0.3 % (0.0-1.0); LYMPH # 1.4 10^3/uL (1.5-5.0); MONO # 0.3 10^3/uL (0.0-0.8); MONO % 1.8 % (2.0-8.0); NEUTROPHILS % 88.6 % (36.0-66.0)
== END 2022-07-28 03:30 | disposition home or self-care (01) ==
LOC: M ED 00:24 → EDBD 00:24 → M ED 03:30
DX: K42.9 Umbilical hernia without obstruction or gangrene (principal); G89.29 Other chronic pain; K21.9 Gastro-esophageal reflux disease without esophagitis; I10 Essential (primary) hypertension; K51.90 Ulcerative colitis, unspecified, without complications; J45.909 Unspecified asthma, uncomplicated; Z91.040 Latex allergy status; Z91.09 Other allergy status, other than to drugs and biological substances; Z79.1 Long term (current) use of non-steroidal anti-inflammatories (NSAID); Z79.899 Other long term (current) drug therapy; F12.10 Cannabis abuse, uncomplicated
CPT/HCPCS: 74177; 80047; 80076; 83605; 83690; 84702; 85025; 96374; 96375; 99283; J1885; J2405

== ENCOUNTER → 2022-09-30 | Outpatient (CLI) | payer OTHER | LOC: M PAIN 11:30 | PROVIDERS: ATTEND Nurse Practitioner Family | DX: M54.40 Lumbago with sciatica, unspecified side (principal); G89.29 Other chronic pain; I10 Essential (primary) hypertension; K21.9 Gastro-esophageal reflux disease without esophagitis; M79.7 Fibromyalgia; Z86.14 Personal history of Methicillin resistant Staphylococcus aureus infection; Z86.59 Personal history of other mental and behavioral disorders; Z87.891 Personal history of nicotine dependence; Z88.1 Allergy status to other antibiotic agents; Z91.040 Latex allergy status; Z79.899 Other long term (current) drug therapy ==

== ENCOUNTER → 2023-01-10 | Outpatient (CLI) | payer OTHER | LOC: M PLALAB 10:25 | PROVIDERS: ATTEND Nurse Practitioner Family | DX: Z12.4 Encounter for screening for malignant neoplasm of cervix (principal); R87.615 Unsatisfactory cytologic smear of cervix ==

== ENCOUNTER → 2023-09-21 | Outpatient (REF) | payer MEDICAID, OTHER ==
[~2023-09-21] MED LIST changes: -GABA-283 PO; +GABA-284 PO; +LORA-1041 PO; -LORA-674 PO
== END ==
LOC: M PLALAB 15:20
PROVIDERS: ATTEND Advanced Practice Midwife
DX: R87.610 Atypical squamous cells of undetermined significance on cytologic smear of cervix (ASC-US) (principal); R87.810 Cervical high risk human papillomavirus (HPV) DNA test positive

== ENCOUNTER → 2024-12-25 | Outpatient (REF) | payer MEDICAID, OTHER ==
[~2024-12-25] MED LIST changes: +GABA-1172 PO; -GABA-282 PO
[2024-12-27 14:13] LABS: HPV APTIMA Detected (Not Detected)
== END ==
LOC: M SFHCWAGY 10:02
PROVIDERS: ATTEND Nurse Practitioner Family
DX: R87.610 Atypical squamous cells of undetermined significance on cytologic smear of cervix (ASC-US) (principal); B97.7 Papillomavirus as the cause of diseases classified elsewhere; Z12.4 Encounter for screening for malignant neoplasm of cervix

== ENCOUNTER → 2025-03-01 | Outpatient (REF) | payer OTHER ==
[~2025-03-01] MED LIST changes: +IUD
== END ==
LOC: M LAB REF 11:55
PROVIDERS: ATTEND Internal Medicine Gastroenterology
DX: K51.00 Ulcerative (chronic) pancolitis without complications (principal)

== ENCOUNTER 2025-03-06 06:50 | Day surgery (SDC) | payer OTHER ==
[~2025-03-06] VITALS: Ht 154.9 cm; Wt 91.4 kg
[2025-03-06 08:20] VITALS: TEMP 97.5
[2025-03-06] MEDS ORDERED: GLYCOPYRROLATE INJ 0.2 MG/ML 2 ML VIAL As Ordered ONE (08:24)
[2025-03-06] MEDS ORDERED: LIDOCAINE 2% 100 MG/5 ML SDV (FOR ANES.) As Ordered ONE (08:24)
[2025-03-06 08:37] VITALS: BP 119/68; O2SAT 99
== END 2025-03-06 08:48 | disposition home or self-care (01) ==
LOC: M OPP 06:50
PROVIDERS: ATTEND Internal Medicine Gastroenterology
DX: K64.8 Other hemorrhoids (principal); K51.00 Ulcerative (chronic) pancolitis without complications; Z88.1 Allergy status to other antibiotic agents; Z91.040 Latex allergy status; Z79.899 Other long term (current) drug therapy; F17.290 Nicotine dependence, other tobacco product, uncomplicated
CPT/HCPCS: 45380; 88305; J1596